=== PATIENT | female | born 1990 | race Caucasian/White ===

== ENCOUNTER 2017-10-24 11:43 | Outpatient (CLI) | payer OTHER ==
[~2017-10-24] VITALS: Ht 160 cm; Wt 62.5 kg
[2017-10-24 11:56] VITALS: Ht 160 cm; Wt 62.5 kg
[2017-10-24 11:57] VITALS: BP 132/86; PULSE 77; RESP 20
[2017-10-24] MEDS ORDERED: ASPI-664 PO (12:21)
--- NOTE | 2017-10-24 13:15 | RADRPT ---
PROCEDURE: US OB biophysical profile. CLINICAL INDICATION: Biophysical profile TECHNIQUE: Multiple sonographic images of the pelvis were obtained. The images were reviewed on a PACS workstation. COMPARISON: None FINDINGS: There is a single live intrauterine , in cephalic presentation. A normal heart rate i s identified measuring 138.9 beats per minute. The amniotic fluid index is within normal limits kike uring 8.7 cm. The placenta is grade 1, located left lateral. Biophysical profile: movement 2/2 tone 2/2. breathing 2/2 FORREST 2/2 Total 06/20 IMPRESSION: 1. Biophysical profile score of 8/8. 2. Single live intrauterine in cephalic presentation with normal heart rate of 138.9 bpm. 3. Normal amniotic fluid index of 8.7 cm. RPTAT: AARR Physician Mony Date Time Electronically viewed and signed by Physician Mony on 10/24/2017 13:14 ARYAN/
--- NOTE | 2017-10-24 13:29 | PN ---
Triage Information Date/Time Reason for visit: NST FORREST Weeks of Gestation 28+ /Para ... Diabetes: none Hypertention: none Objective Vital Signs Date Time Temp Pulse Resp B/P Pulse Ox O2 Delivery O2 Flow Rate FiO2 10/24/17 11:57 98.5 77 20 132/86 Room Air Heart Rate: 140's Contractions: None Disposition: Discharge Assessment/Plan precautions discussed Return in 2 days for NST FORREST Patient's questions answered ALLISON LEVINE M.D. Oct 24, 2017 13:29
--- NOTE | 2017-10-24 13:50 | TRIAGE ---
OB Triage Datetime Report Generated by CPN: 10/24/2017 13:50 Datetime: 10/24/2017 13:40 Stage of : OB Triage Labor Evaluation Frequency: NONE Monitor Mode: External Resting Tone Little Flock: Relaxed Heart Rate FHR Baseline Rate: 140 FHR Baseline Changes: No Baseline Change Variability: Moderate 6-25 bpm Accelerations: 10X10 Decelerations: None Category: Category I Pain Assessment Pain Scale: 0 Pain Presence: None/Denies Pain Goal: 3 Datetime: 10/24/2017 13:30 Stage of : OB Triage Datetime: 10/24/2017 12:26 Stage of : OB Triage Labor Evaluation Frequency: NONE Monitor Mode: External Resting Tone Little Flock: Relaxed Heart Rate FHR Baseline Rate: 140 FHR Baseline Changes: No Baseline Change Variability: Moderate 6-25 bpm Accelerations: 10X10 Decelerations: None Category: Category I Pain Assessment Pain Scale: 0 Pain Presence: None/Denies Pain Goal: 3 Datetime: 10/24/2017 12:16 Stage of : OB Triage Datetime: 10/24/2017 12:03 Time of Arrival: 10/24/2017 11:35 EGA: 23.6 Datetime: 10/24/2017 11:53 Assessment Type: Triage Maternal Assessment Level of Consciousness: Fully Conscious DTR's/Clonus: DTRs 2+; No Clonus Headache: Denies Blurred Vision: No Respiratory Effort: Unlabored; Regular Rhythm; Equal Expansion Breath Sounds, Left: Clear and Equal Breath Sounds, Right: Clear and Equal Nausea/Vomiting: Denies RUQ Epigastric Pain: Denies Lower Extremities Edema: None Degree: None Upper Extremities Edema: None Degree: None Facial Edema: None Fall Risk Assessment History of Falling: (0) No Secondary Diagnosis: (0) No Ambulatory Aid: (0) Bedrest/Nurse Assist IV Therapy: (0) No Gait: (0) Normal/Bedrest/Immobile Mental Status: (0) Oriented to Own Ability Fall Score: 0 Fall Risk Score Definition: No Risk: No action required Datetime: 10/24/2017 11:50 Time of Arrival: 10/24/2001 11:35 EGA: -806.3 Arrived By: Ambulatory Arrived From: Dr. Cavazos Chief Complaint: PT SENT FROM PERINATOLOGY FOR NST AND BPP.PT HAD LOW FORREST IN PERINATOLOGY IN LAST VISIT. Movement: Present Contractions: Denies/Absent Rupture of Membranes: Denies Vaginal Bleeding: None Vaginal Discharge: Denies Recent Sexual Intercouse: Denies Abdominal Trauma: Not Applicable Patient Complaints: None Initial Plan: NST BPP Datetime: 10/24/2017 11:46 Stage of : OB Triage
== END 2017-10-24 13:51 | disposition home or self-care (01) ==
LOC: L-D 11:43 → OBT 11:43
PROVIDERS: ATTEND Specialist
DX: O41.92X0 Disorder of amniotic fluid and membranes, unspecified, second trimester, not applicable or unspecified (principal); Z3A.28 28 weeks gestation of pregnancy
CPT/HCPCS: 76818; Z7500; G0463

== ENCOUNTER 2017-10-26 10:25 | Outpatient (CLI) | payer OTHER ==
[~2017-10-26] VITALS: Ht 160 cm; Wt 63.8 kg
[~2017-10-26 10:25] MED LIST: ASPI-664 PO
[2017-10-26 10:40] VITALS: BP 133/77; PULSE 85; Ht 160 cm; Wt 63.8 kg
[2017-10-26] MEDS ORDERED: PNV11TAB PO (10:41)
--- NOTE | 2017-10-26 13:38 | CONS ---
Date/Time of Note Date/Time of Note DATE: 10/26/17 TIME: 13:30 Consultation Date/Type/Reason Admit Date/Time October 26, 2017 OB triage consult This patient is a 27 years old 3 para 2 who had both deliveries by section. Her estimated date of confinement is January 14, 2018 which makes her 28 weeks and 4 days today. She came to triage complaining of intrauterine growth retardation as well as low movement. On examination she is a well-developed well-nourished patient at midterm. Her general vital signs appears to be normal with blood pressure of 135/77, pulse rate 85, respiration 18, and temperature 98.5. On examination her abdomen is soft ,basically no contractions heart tone is reactive with good variability occasional acceleration no decelerations. Pelvic exam was not performed, however she has no complaint of vaginal leaking. Constitutional: No chills, No diaphoresis, No disoriented, No febrile, No improved, No no complaints, No other, No poor po, No requiring IVF, No requiring O2 Eyes: No discharge, No no complaints, No other, No pain, No redness, No visual change ENT: No bleeding, No congestion, No discharge, No dysphagia, No no complaints, No other, No pain, No sore throat Respiratory: No cough, No no complaints, No other, No pain, No pleuritic pain, No shortness of breath, No sputum, No wheezing Cardiovascular: No chest pain, No edema, No lightheadedness, No no complaints, No orthopenea, No other, No palpitations, No paroxysmal nocturnal dyspnea Gastrointestinal: No blood, No constipation, No decreased appetite, No diarrhea , No flatus, No nausea, No no complaints, No other, No pain, No passing stool, No vomiting Genitourinary: other (Pelvic examination was not performed due to the fact that she did not have any contractions), No bleeding, No discharge, No dysuria, No flank pain, No hematuria, No no complaints Musculoskeletal: No back pain, No bone/joint pain, No neck pain, No no complaints, No other, No restricted range of motion, No swelling Skin: No bruising, No erythema, No laceration, No no complaints, No other, No pruritis, No rash, No skin lesions Neurologic: other (Knee-jerk reflexes are normal), No confusion, No dizziness, No focal-weakness, No headache, No no complaints , No seizure, No syncope Endocrine: No dry skin, No no complaints, No other, No polydypsia, No polyuria , No temp intolerance Additional Comments .On ultrasound study the report is a single live intrauterine in breech presentation with positive movement, heart rate of 137 bpm ,normal anatomy placenta grade 1. measurement of the head circumference and biparietal diameter and femur length gave a gestational age of 26.3 days with estimated weight of 979.3 g 146.9 g . Amniotic fluid index was 11.9. with these information patient was discharged home to be followed in the Dr. Salazar's clinic and may return for further evaluation sometimes later End of dictation . . . . Social History Smoking Status: Never smoker Exam/Review of Systems Vital Signs Vitals Vital Signs Date Time Temp Pulse Resp B/P Pulse Ox O2 Delivery O2 Flow Rate FiO2 10/26/17 10:40 98.5 85 133/77 PAN NELSON MD Oct 26, 2017 13:37
--- NOTE | 2017-10-26 16:51 | RADRPT ---
PROCEDURE: US OB. CLINICAL INDICATION: Intrauterine growth retardation and low FORREST TECHNIQUE: Multiple sonographic images of the pelvis were obtained. The images were reviewed on a PACS workstation. COMPARISON: No prior studies are available for comparison. FINDINGS: The a single live intrauterine is identified, with breech presentation. Positive movement and cardiac activity is identified. heart rate is within normal limits measuring 137 bpm. The ventricles, stomach, bilateral kidneys, bladder, three-vessel cord, four-chamber heart, and spin e are visualized and without gross abnormality. The placenta is grade 1, located fundally. The following measurements were obtained: The biparietal diameter measures 6.1 cm. The head circumference measures 24.4 cm. The abdominal circ umference, measures 22.3 cm and femur length measures 5.1 cm. This corresponds to a mean gestational age of 26 weeks and 3 days. Estimated weight is 979.3 g +/- 146.9 g. T The amniotic fluid index is with normal limits measuring 11.9 cm. IMPRESSION: 1. Single live intrauterine in breech presentation. The measured gestational age is approx imately 26 weeks and 3 days by ultrasound criteria. Estimated due date is January 29, 2018. 2. Estimated weight is 979.3 g +/- 146.9 g. This is below the 3rd percentile. 3. Normal amniotic fluid index of 11.9 cm. RPTAT: AAPP Physician Mony Date Time Electronically viewed and signed by Physician Mony on 10/26/2017 11:23 ARYAN/
--- NOTE | 2017-10-26 16:51 | RADRPT ---
PROCEDURE: US OB biophysical profile. CLINICAL INDICATION: Intrauterine growth retardation and low FORREST TECHNIQUE: Multiple sonographic images of the pelvis were obtained. The images were reviewed on a PACS workstation. COMPARISON: US PELVIS 10/24/2017 FINDINGS: There is a single live intrauterine , in breech presentation. A normal heart rate is identified measuring 137 beats per minute. The amniotic fluid index is within normal limits measurin g 11.9 cm. Biophysical profile: movement 2/2 tone 2/2. breathing 2/2 FORREST 2/2 Total 06/20 IMPRESSION: 1. Biophysical profile score of 8/8. 2. Single live intrauterine in breech presentation with normal heart rate of 137 bpm . 3. Normal amniotic fluid index of 11.9 cm. RPTAT: AAPP Physician Mony Date Time Electronically viewed and signed by Physician Mony on 10/26/2017 11:21 ARYAN/
== END 2017-10-26 13:05 | disposition home or self-care (01) ==
LOC: OBT 10:25 → L-D 10:25 → OBT 13:05
PROVIDERS: ATTEND Specialist
DX: O36.8120 Decreased fetal movements, second trimester, not applicable or unspecified (principal); O36.5920 Maternal care for other known or suspected poor fetal growth, second trimester, not applicable or unspecified; Z3A.28 28 weeks gestation of pregnancy
CPT/HCPCS: 76815; 76818; Z7500; G0463

== ENCOUNTER 2017-11-14 14:10 | Inpatient (IN) | END 2017-12-07 16:13 | disposition home or self-care (01) | DRG 765 ==

== ENCOUNTER 2019-07-22 15:22 | Emergency (ER) | payer OTHER ==
[~2019-07-22] VITALS: Ht 160 cm; Wt 57.7 kg
[~2019-07-22 15:22] MED LIST changes: -ASPI-664 PO; +ASPI-817 PO; +IBUP-1542 PO; +PNV11TAB PO
[2019-07-22 15:27] VITALS: RESP 16; Ht 160 cm; Wt 57.7 kg
[2019-07-22] MEDS ORDERED: KETOROLAC 60 MG INJ IM STA (18:56)
[2019-07-22] MEDS ORDERED: HYDROCODONE/APAP (5/325) TAB PO ONE (19:00)
[2019-07-22] MEDS ORDERED: IBUPROFEN 600 MG TAB PO ONE (19:30)
[2019-07-22 20:11] VITALS: BP 155/77; PULSE 60
== END 2019-07-22 20:06 | disposition home or self-care (01) ==
LOC: FTE 15:22
DX: M54.30 Sciatica, unspecified side (principal); I10 Essential (primary) hypertension
CPT/HCPCS: 81025; Z7502; Z7610; 99283